=== PATIENT | male | born 1985 | race Caucasian/White ===

== ENCOUNTER 2016-10-15 20:33 | Emergency (ER) | payer BC ==
[2016-10-15 20:47] VITALS: BP 121/92
[2016-10-15] MEDS ORDERED: Famotidine 20 MG Tab PO ONE (21:03)
[2016-10-15] MEDS ORDERED: predniSONE 20 MG Tab PO STA (21:03)
--- NOTE | 2016-10-15 21:09 | EDM.PDOC ---
ED HPI Allergic Reaction - General Chief Complaint: Allergic Reaction Stated Complaint: [facility] Time Seen by Provider: 10/15/16 20:45 Source of Information: Reports: Patient, EMS, RN notes reviewed History Limitations: Reports: No limitations - History of Present Illness INITIAL COMMENTS - FREE TEXT/NARRATIVE: The patient states that he took 3 "pain reliever" the pills around 17:00. He believes the pills were ibuprofen, but he is not sure. He states that his last oral food was breakfast at 08:00. Around 17:20 or 17:30 he developed facial swelling and generalized pruritus. No oral swelling, no dyspnea or wheezing, and no GI problems. EMS gave the patient epinephrine 0.3 mg at 19:48, and 50 mg IV diphenhydramine at 20:07. His symptoms have sincde improved somewhat. No prior similar episodes. - Related Data Allergies/ADRs: Allergies Allergy/AdvReac Type Severity Reaction Status Date / Time No Known Allergies Allergy Verified 10/15/16 20:38 Home Meds: Home Meds . [No Known Home Meds] 10/15/16 [History] Past Medical History - Past Surgical History HEENT Surgical History: Reports: Tonsillectomy Social & Family History - Family History Family Medical History: Noncontributory - Tobacco Use Smoking Status *Q: Current Every Day Smoker Years of Tobacco use: 10 Packs/Tins Daily: 0.3 - Caffeine Use Caffeine Use: Reports: Soda - Alcohol Use Alcohol Use History: Yes Alcohol Use Frequency: Socially - Recreational Drug Use Recreational Drug Use: No - Living Situation & Occupation Living situation: Reports: , alone Occupation: employed ([employer]) ED ROS ALLERGIC REACTION - Review of Systems Review Of Systems: See Below Constitutional: Reports: no symptoms HEENT: Reports: Other (Viral URI sx's x 2 days) Respiratory: Reports: No Symptoms Cardiovascular: Reports: No symptoms Endocrine: Reports: no symptoms GI/Abdominal: Reports: No symptoms : Reports: no symptoms Musculoskeletal: Reports: no symptoms Skin: Reports: no symptoms Neurological: Reports: No Symptoms Hematologic/Lymphatic: Reports: no symptoms Immunologic: Reports: no symptoms ED EXAM GENERAL NO PERIP PULSE - Physical Exam Exam: See Below Exam Limited By: No limitations General Appearance: alert, WD/WN, mild distress Eye Exam: bilateral eye: EOMI, normal inspection Ears: normal external exam, normal canal, hearing grossly normal, normal TMs Nose: normal inspection, normal mucosa, no blood Throat/Mouth: Normal inspection, Normal lips, Normal teeth, Normal gums, Normal oropharynx (No ulular edema), Normal voice, No airway compromise Head: atraumatic, normocephalic Neck: normal inspection, full range of motion Respiratory/Chest: no respiratory distress, lungs clear, normal breath sounds, no accessory muscle use, chest non-tender. No: wheezing Cardiovascular: normal peripheral pulses, regular rate, rhythm, no edema, no gallop, no JVD, no murmur, no rub GI/Abdominal: normal bowel sounds, soft, non tender, no organomegaly, no distention, no abnormal bruit, no mass Back Exam: normal inspection, full range of motion, NT Extremities: normal inspection, normal range of motion, normal capillary refill Neurological: alert, oriented, normal cognition, no motor/sensory deficits Psychiatric: normal affect Skin Exam: Warm, Dry, Intact, Erythema (Generalized), Rash (Urticaria, most noticeable on the lower abdominal wall and upper extremities) Lymphatic: no adenopathy Course - Vital Signs Last Recorded V/S: Last Vital Signs Temp 36.7 C 10/15/16 20:38 Pulse 108 H 10/15/16 20:38 Resp 18 10/15/16 20:38 BP 121/92 H 10/15/16 20:38 Pulse Ox 117 H 10/15/16 20:38 - Orders/Labs/Meds Meds: Medications Discontinued Medications Generic Name Dose Route Start Last Admin Trade Name Freq PRN Reason Stop Dose Admin Famotidine 20 mg 10/15/16 21:03 10/15/16 21:21 Pepcid PO 10/15/16 21:04 20 mg ONETIME ONE Administration Prednisone 40 mg 10/15/16 21:03 10/15/16 21:21 Prednisone PO 10/15/16 21:04 40 mg ONETIME STA Administration - Re-Assessments/Exams Free Text/Narrative Re-Assessment/Exam: 10/15/16 22:31 The patient was reevaluated. No more visible urticaria, and the patient states that he feels fine. I will discharge him home. Departure - Departure Time of Disposition: 22:31 Disposition: Home, Self-Care 01 Condition: good Clinical Impression: Allergic reaction caused by a drug Referrals: PCP,None [Primary Care Provider] - Emily Castillo PA-C [Physician Broadcast Traffic Coordinator] - Forms: ED Department Discharge Additional Instructions: You were seen in the emergency room tonight for an allergic reaction after taking a pain medicine. You received epinephrine and Benadryl by the paramedics, and prednisone and Pepcid in the ER. We recommend that you check the contents of the pain medicine, and that you've not take that ingredient anymore. Followup with Emily Castillo in the clinic as needed. If any other problems, please do not hesitate to return to the ER.
== END 2016-10-15 22:38 | disposition home or self-care (01) ==
LOC: JD.ED 20:33
DX: L29.9 Pruritus, unspecified (principal); T50.905A Adverse effect of unspecified drugs, medicaments and biological substances, initial encounter; F17.210 Nicotine dependence, cigarettes, uncomplicated; Z98.890 Other specified postprocedural states
CPT/HCPCS: 99285; A9270; 99283; 99284